=== PATIENT | female | born 1955 | race Caucasian/White ===

== ENCOUNTER → 2022-01-01 | Outpatient (CLI) | payer MEDICARE | LOC: RAD 09:29 | DX: M17.12 Unilateral primary osteoarthritis, left knee (principal); S89.92XA Unspecified injury of left lower leg, initial encounter; X58.XXXA Exposure to other specified factors, initial encounter ==

== ENCOUNTER → 2022-07-30 | Outpatient (CLI) | payer MEDICARE | LOC: LAB 10:29 | DX: K59.00 Constipation, unspecified (principal); R63.4 Abnormal weight loss ==

== ENCOUNTER → 2024-11-22 | Outpatient (CLI) | payer MEDICARE ==
[2024-11-22 19:13] LABS: CLUE CELLS NOT OBSERVED (Not Observd)
== END ==
LOC: LAB 19:01
PROVIDERS: Family Medicine
DX: R30.0 Dysuria (principal)
CPT/HCPCS: Q0111